=== PATIENT | female | born 1965 | race American Indian/Alaskan Native ===

== ENCOUNTER 2017-05-10 10:09 | Day surgery (SDC) | payer OTHER ==
[~2017-05-10 10:09] MED LIST: WATER FOR IRRIG STERILE IR ONE
[2017-05-10] MEDS ORDERED: NACL 0.9% 1000 ML 1,000 ML IV SCH (11:00)
--- NOTE | 2017-05-10 11:57 | History and Physical Report ---
History of Present Illness Date of examination: 05/10/17 Date of admission: 05/10/2017 Chief complaint: Colorectal cancer screening. History of present illness: Patient's a 51-year-old female who was referred for colorectal cancer screening. Patient now presents for colonoscopy evaluation. Denies any additional complaints. Past History Past Medical History: GERD Past Surgical History: No surgical history Social history: denies: smoking, alcohol abuse Medications and Allergies Allergies Allergy/AdvReac Type Severity Reaction Status Date / Time propofol AdvReac Severe Anaphylaxis Verified 05/10/17 10:40 omeprazole AdvReac Intermediate Shortness Verified 05/10/17 10:40 of Breath Home Medications Medication Instructions Recorded Confirmed Last Taken Type Pantoprazole 20 mg PO DAILY 05/10/17 05/10/17 05/07/17 History Active Meds: Active Medications Sodium Chloride (Nacl 0.9% 1000 Ml) 1,000 mls @ 50 mls/hr IV DIRECT SVETLANA Last Admin: 05/10/17 11:32 Dose: 50 mls/hr Review of Systems All systems: negative Exam - Constitutional Vitals: Temp Pulse Resp BP Pulse Ox 98.3 F 83 16 120/62 97 05/10/17 11:05 05/10/17 11:05 05/10/17 11:05 05/10/17 11:05 05/10/17 11:05 General appearance: Present: no acute distress, well-nourished - EENT Eyes: Present: PERRL ENT: hearing intact, clear oral mucosa - Neck Neck: Present: supple, normal ROM - Respiratory Respiratory effort: normal Respiratory: bilateral: CTA - Cardiovascular Heart Sounds: Present: S1 & S2. Absent: rub, click - Extremities Extremities: pulses symmetrical, No edema Peripheral Pulses: within normal limits - Abdominal General gastrointestinal: Present: soft, non-tender, non-distended, normal bowel sounds Female genitourinary: Present: normal - Integumentary Integumentary: Present: clear, warm, dry - Musculoskeletal Musculoskeletal: gait normal, strength equal bilaterally - Psychiatric Psychiatric: appropriate mood/affect, intact judgment & insight - Neurologic Neurologic: CNII-XII intact, moves all extremities Assessment and Plan Colorectal cancer screening. Plan: Colonoscopy.
--- NOTE | 2017-05-10 11:58 | Operative Report ---
Operative Report Operative Report: Date of procedure: 05/10/2017 Procedure: Colonoscopy with hot biopsy polypectomy. Attending physician: Chao Hughes MD Glue Clamp Operator: Chao Hughes MD Indication: Patient is a 51-year-old female who presents for colonoscopy for colorectal cancer screening. Patient also has a family history of colorectal and gastric cancer. A colonoscopy serves to evaluate patient so that treatment may be directed based on the findings. Consent: Informed consent was obtained after advising the patient and family regarding nature of this procedure, its indications, potential benefits as well as possible complications including but not limited to bleeding perforation and adverse reaction to medication, infection as well as other cardiopulmonary complications. An informed written and verbal consent was then obtained after due opportunity was provided for questions and answers. Monitoring: Patient was monitored continuously with pulse oximetry and electrocardiographic recordings as well as blood pressure recordings. Vital signs remained stable throughout this procedure with no untoward events. Preoperative assessment: Patient was assessed immediately prior to this procedure for capacity to tolerate monitored anesthesia care and moderate sedation as well as general anesthesia. Patient's ASA classification is 2, Mallampati class is 2, Hyomental distance is 3. Instrument: Mineful video colonoscope Medications: Propofol given intravenously in divided doses. For details please refer to anesthesia records. Description of procedure: Patient was placed in the left lateral decubitus position after achieving sedation, a digital rectal examination was performed following which the colonoscope was introduced into the anal verge and advanced to the cecum which was identified by the ileocecal valve, the appendiceal orifice, as well as by the cecal strap and direct transillumination. The colonoscope was subsequently withdrawn with careful inspection of all mucosal surfaces. Patient tolerated this procedure well and was subsequently taken to the recovery room. The following findings were noted. Findings: Patient had a few scattered diverticula in the sigmoid, descending and transverse colon. There were also a few diverticula in the ascending colon. There was some densely adherent thick liquid stool in the cecum and the proximal ascending colon. There was a diminutive polyp in the descending colon which was removed biopsy polypectomy. On the retroflex view at the anal verge, patient had internal hemorrhoids. Impression: Diminutive descending colon polyp status post hot biopsy polypectomy. Diverticular disease of the colon. Internal hemorrhoids. Plan: Follow pathology report. High-fiber diet. Repeat colonoscopy in 5 years.
--- NOTE | 2017-05-10 13:00 | Anesthesia Consultation ---
Anesthesia Consult and Med Hx Date of service: 05/10/17 - Airway Anesthetic Teeth Evaluation: Good ROM Head & Neck: Adequate Mental/Hyoid Distance: Adequate Mallampati Class: Class II Intubation Access Assessment: Probably Good - Pulmonary Exam CTA: Yes - Cardiac Exam Cardiac Exam: RRR - Pre-Operative Health Status ASA Pre-Surgery Classification: ASA2 Proposed Anesthetic Plan: MAC - Gastrointestinal Hx Gastroesophageal Reflux Disease: Yes - Other Systems Hx Obesity: Yes
--- NOTE | 2017-05-10 13:00 | Anesthesia Day of Surgery ---
Anesthesia Day of Surgery - Day of Surgery Patient Examined: Yes Patient H&P Reviewed: Yes Patient is NPO: Yes
[2017-05-10] MEDS ORDERED: XYLOCAINE MPF 2% ONE (14:00)
[2017-05-10] MEDS ORDERED: WATER FOR IRRIG STERILE IR ONE (14:22)
[2017-05-10] MEDS ORDERED: WATER FOR IRRIG STERILE ONE (14:22)
[2017-05-10] MEDS ORDERED: AMIDATE IV ONE (14:39)
[2017-05-10] MEDS ORDERED: VERSED ONE (15:05)
--- NOTE | 2017-05-10 15:22 | Discharge Summary ---
Short Stay Discharge Plan Activity: advance as tolerated Weight Bearing Status: Weight Bear as Tolerated Diet: regular
[2017-05-10 15:45] VITALS: BP 128/80
== END 2017-05-10 10:10 | disposition home or self-care (01) ==
LOC: GIO 10:09
PROVIDERS: ATTEND Internal Medicine Gastroenterology
DX: Z12.11 Encounter for screening for malignant neoplasm of colon (principal); D12.4 Benign neoplasm of descending colon; K57.30 Diverticulosis of large intestine without perforation or abscess without bleeding; K21.9 Gastro-esophageal reflux disease without esophagitis; K64.8 Other hemorrhoids; Z98.890 Other specified postprocedural states; Z80.0 Family history of malignant neoplasm of digestive organs; E66.9 Obesity, unspecified
CPT/HCPCS: 45384; 88305; J2250; J7030